=== PATIENT | female | born 2000 | race African-American/Black ===

== ENCOUNTER 2023-08-18 16:30 | Emergency (ER) | payer MEDICAID ==
[2023-08-18 17:17] LABS: APPEARANCE,URINE CLEAR (Clear); BILIRUBIN,URINE NEGATIVE (Negative); COLOR,URINE YELLOW (Yellow); GLUCOSE,URINE NEGATIVE (Negative); KETONES,URINE NEGATIVE (Negative); LEUKOCYTE ESTERASE,URINE NEGATIVE (Negative); NITRITE,URINE NEGATIVE (Negative); OCCULT BLOOD,URINE NEGATIVE (Negative); PH,URINE 6.5 (5.0-8.0); PROTEIN,URINE NEGATIVE (Negative)
[2023-08-18] MEDS ORDERED: Meclizine 25 MG Tab PO ONE (17:24)
[2023-08-18 17:30] LABS: INFLUENZA A NAA NEGATIVE (NEGATIVE)
[2023-08-18 17:44] LABS: CORONAVIRUS COVID-19 NAA POSITIVE (NEGATIVE)
[2023-08-18 18:14] LABS: BACTERIA,URINE MODERATE /hpf (FEW); MUCUS,URINE MODERATE /hpf (FEW); RBC,URINE 0-5 /hpf (0-5); WBC,URINE 0-5 /hpf (0-5)
== END 2023-08-18 18:05 | disposition home or self-care (01) ==
LOC: JD.ED 16:30
DX: U07.1 COVID-19 (principal); R42 Dizziness and giddiness
CPT/HCPCS: 0240U; 81001; 81025; 99284; A9270; 99283